=== PATIENT | female | born 1945 | race Caucasian/White ===

== ENCOUNTER 2018-01-22 03:58 | Emergency (ER) | payer BC ==
[~2018-01-22] VITALS: Ht 157.5 cm; Wt 90.7 kg
[2018-01-22 04:31] LABS: BASOPHILS ABSOLUTE AUTO 0.05 K/mm3 (0.00-0.23); BASOPHILS PERCENT AUTO 1 % (0-2); EOSINOPHILS ABSOLUTE AUTO 0.06 K/mm3 (0.00-0.68); EOSINOPHILS PERCENT AUTO 1 % (0-6); Hematocrit 42.5 % (33.0-51.0); Hemoglobin 13.4 g/dL (11.5-16.0); IMMATURE GRAN ABSOLUTE AUTO 0.03 K/mm3 (0.00-0.10); IMMATURE GRAN PERCENT AUTO 0 % (0-1); LYMPHOCYTES ABSOLUTE AUTO 1.13 K/mm3 (0.84-5.20); LYMPHOCYTES PERCENT AUTO 12 % (21-46); MONOCYTES ABSOLUTE AUTO 0.37 K/mm3 (0.16-1.47); MONOCYTES PERCENT AUTO 4 % (4-13); Mean Corpuscular HGB 28.3 pg (26.0-34.0); Mean Corpuscular HGB Conc 31.5 g/dL (31.5-36.5); Mean Corpuscular Volume 90 fL (80-100); NEUTROPHILS ABSOLUTE AUTO 7.56 K/mm3 (1.96-9.15); NEUTROPHILS PERCENT AUTO 82 % (41-73); RDW Coefficient Variation 12.8 % (11.7-14.2); RDW Standard Deviation 42.3 fL (35.1-46.3); Red Blood Cell Count 4.74 M/mm3 (3.80-5.20)
[2018-01-22 04:41] LABS: Mean Platelet Volume 9.4 fL (9.1-12.4); Platelet Count 299 K/mm3 (150-400)
[2018-01-22 04:48] LABS: Alanine Aminotransfer (ALT/SGP 19 U/L (12-78); Albumin, Blood 3.8 g/dL (3.4-5.0); Alk Phos 88 U/L (50-136); Anion Gap 8 mmol/L (6-16); Aspartate Aminotrans (AST/SGOT 21 U/L (12-37); Bilirubin, Total 0.4 mg/dL (0.1-1.0); Blood Urea Nitrogen 17 mg/dL (8-24); Bun/Creatinine Ratio 27.2 (12.0-20.0); CO2, Blood 29 mmol/L (21-32); Chloride, Blood 103 mmol/L (98-108); Creatinine, Blood 0.62 mg/dL (0.40-1.00); Globulin, Blood 3.7 g/dL (2.2-4.0); Glomerular Filtration Rate >60 (60-); Glucose, Blood 139 mg/dL (70-99); Potassium, Blood 3.8 mmol/L (3.5-5.5); Sodium, Blood 140 mmol/L (136-145); Total Protein, Blood 7.5 g/dL (6.4-8.2); Troponin I <0.015 ng/mL (0.000-0.040)
[2018-01-22] MEDS ORDERED: Valcyte450 MG PO (05:16)
[2018-01-22] MEDS ORDERED: DULO60 PO (05:16)
[2018-01-22] MEDS ORDERED: NAPR220 PO (05:17)
[2018-01-22] MEDS ORDERED: ZYRTEC10 M1 PO (05:17)
[2018-01-22] MEDS ORDERED: CHOL10002 PO (05:17)
[2018-01-22] MEDS ORDERED: ACYC400 PO (05:18)
== END 2018-01-22 06:20 | disposition home or self-care (01) ==
LOC: ER 03:58
PROVIDERS: Emergency Medicine
DX: R55 Syncope and collapse (principal); F17.200 Nicotine dependence, unspecified, uncomplicated; Z79.899 Other long term (current) drug therapy
CPT/HCPCS: 80053; 84484; 85025; 93005; 93010; 96360; 99284-25; J7030